=== PATIENT | male | born 1975 ===

== ENCOUNTER 2023-10-31 19:26 | Emergency (ER) | payer SELFPAY ==
[~2023-10-31] VITALS: Ht 167.6 cm; Wt 65.0 kg
[2023-10-31 19:59] VITALS: BP 126/91; PULSE 75; RESP 16; TEMP 97.8; O2SAT 98
[2023-10-31] MEDS ORDERED: IBUP-2029 MT (22:27)
[2023-10-31] MEDS ORDERED: ONDANSETRON 4MG ODT PO ONE (22:30)
== END 2023-10-31 22:41 | disposition home or self-care (01) ==
LOC: ER 19:26
DX: M54.50 Low back pain, unspecified (principal); R51.9 Headache, unspecified
CPT/HCPCS: 99284; 70450; Q0162